=== PATIENT | female | born 1985 | race Caucasian/White ===

== ENCOUNTER 2019-05-25 10:57 | Inpatient (IN) | payer OTHER ==
[~2019-05-25] VITALS: Ht 157.5 cm; Wt 59.9 kg
[2019-06-12] MEDS ORDERED: IRON325 MG PO (05:12)
[2019-06-12] MEDS ORDERED: PRENATAL TABLE1 EAC1 PO (05:12)
== END 2019-06-15 10:52 | disposition home or self-care (01) | DRG 807 ==
LOC: LDR 06-12 04:29 → OB/GYN 06-12 05:51
PROVIDERS: ADMIT Obstetrics & Gynecology
PROC: 10E0XZZ Delivery of Products of Conception, External Approach (ICD-10-PCS; principal; 2019-06-12)
PROC: 0KQM0ZZ Repair Perineum Muscle, Open Approach (ICD-10-PCS; 2019-06-12)
PROC: 0W8NXZZ Division of Female Perineum, External Approach (ICD-10-PCS; 2019-06-12)
PROC: 4A1HXCZ Monitoring of Products of Conception, Cardiac Rate, External Approach (ICD-10-PCS; 2019-06-12)
DX: O70.1 Second degree perineal laceration during delivery (principal); Z37.0 Single live birth; Z3A.38 38 weeks gestation of pregnancy

== ENCOUNTER 2021-06-05 10:30 | Inpatient (IN) | payer OTHER ==
[~2021-06-05] VITALS: Ht 157.5 cm; Wt 63.5 kg
[~2021-06-05 10:30] MED LIST: IRON325 MG PO; PRENATAL TABLE1 EAC1 PO
[2021-06-05] MEDS ORDERED: FAMOTIDINE20 MG (10:45)
== END 2021-06-07 12:16 | disposition home or self-care (01) | DRG 807 ==
LOC: LDR 10:30 → OB/GYN 17:20
PROVIDERS: ADMIT Obstetrics & Gynecology; ATTEND Obstetrics & Gynecology
PROC: 10E0XZZ Delivery of Products of Conception, External Approach (ICD-10-PCS; principal; 2021-06-05)
PROC: 4A1HXCZ Monitoring of Products of Conception, Cardiac Rate, External Approach (ICD-10-PCS; 2021-06-05)
DX: O80 Encounter for full-term uncomplicated delivery (principal); Z37.0 Single live birth; Z3A.37 37 weeks gestation of pregnancy; Z20.822 Contact with and (suspected) exposure to COVID-19